=== PATIENT | female | born 1990 | race Caucasian/White ===

== ENCOUNTER → 2017-10-17 15:45 | Outpatient (CLI) | payer SELFPAY ==
--- NOTE | 2017-10-15 | FLU_PTH ---
PATIENT: AIRAM FERNANDEZ [facility] U#:[id number] AGE/SX: 35/F ROOM: RE10/17/[address]: Dr. Mreary Olson MD : 1990 BED: DIS: SPEC #: [id number] RECD: 10/17/17 15:38 STATUS: SLADE [place] #: [id number] JOSE DE JESUS: 10/15/17 00:[address]: Merary Olson DEPT: CYTOLOGY RECD BY: Luis Carlos Beltran Tissues: A - Thyroid gland, NOS B - Thyroid gland, NOS Procedures: Pap Stain (control) Special Stain Group II Surgery Specimen Level IV Cell Block Cytospin Fluid HEADER OPERATION: Ultrasound-guided fine needle aspiration of left thyroid PRE-OP DIAGNOSIS: Left thyroid nodules TISSUE SUBMITTED: A - FNA left thyroid fluid for cytology, B - FNA left thyroid 8 slides DIAGNOSIS CYTOLOGY A. Left thyroid nodule fluid, FNA (cytospin and cell block): Benign follicular cells and macrophages noted. B. Left thyroid nodule, FNA (smears): Consistent with benign follicular nodule with focal cystic changes. See cytology study and comment. SJ:rg 10/19/17 COMMENT B. Correlation with clinical, radiologic findings and appropriate follow up are necessary. CYTOLOGY STUDY Slides are reviewed. B. The specimen is adequate for evaluation. The specimen consists of benign follicular cells, macrophages and diluted colloid. CYTOLOGY GROSS A - Received is 30 ml of red cloudy fluid labeled with the patient's name and and designated per the requisition as left thyroid. Submitted for cytology preparation including cell block. B - Received are eight smears labeled with the patient's name and designated per the requisition as left thyroid. Submitted for staining. / 10/18/17 TC:5 CPT: 90188, 40866, 13705
== END ==
PROVIDERS: Visit Provider Surgery
DX: E04.1 Nontoxic single thyroid nodule (principal)
CPT/HCPCS: 88108; 88305; 88313

== ENCOUNTER → 2020-04-30 16:20 | Outpatient (CLI) | payer SELFPAY ==
[2015-10-21 18:11] VITALS: BMI 44.9
--- NOTE | 2020-04-30 | FLU_PTH ---
PATIENT: AIRAM FERNANDEZ LOC: [facility] U#:[id number] AGE/SX: 35/F ROOM: RE04/30/[address]: Dr. Merary Olson MD : 1990 BED: DIS: SPEC #: [id number] RECD: 04/30/20 17:19 STATUS: SLADE REQ #: [id number] JOSE DE JESUS: 04/30/20 00:[address]: Merary Olson DEPT: CYTOLOGY RECD BY: Luis Carlos Beltran ENTERED: 05/03/20 09:48 SP TYPE: Fluid OTHR DR: Dr. Jorge L Yuen, DO Tissues: A - Thyroid gland, NOS B - Thyroid gland, NOS Procedures: Special Stain Group II Surgery Specimen Level IV Cytospin Fluid HEADER OPERATION: Ultrasound-guided fine needle aspiration left thyroid PRE-OP DIAGNOSIS: Thyroid nodules TISSUE SUBMITTED: A - FNA left thyroid fluid for cytology, B - FNA left thyroid 8 slides DIAGNOSIS CYTOLOGY A. Fine needle aspiration, left thyroid nodule (cytospin and cell block): Adequate for evaluation. Benign follicular nodule with cystic change. B. Fine needle aspiration, left thyroid nodule (smears): Adequate for evaluation. Consistent with benign follicular nodule with cystic change. AM:nilda 05/04/20 AM:nilda 05/11/20 CYTOLOGY STUDY Slides are reviewed. CYTOLOGY GROSS A - Received is 30 ml of brown cloudy fluid labeled with the patient's name and and designated per the requisition as left thyroid. Submitted for cytology preparation including cell block. B - Received are eight smears labeled with the patient's name and designated per the requisition as left thyroid. Submitted for staining. / nilda 05/03/20 TC:5 CPT: 51400, 77540, 40199 ADDENDUM ADDENDUM ADDENDUM ADDENDUM ADDENDUM ADDENDUM ADDENDUM ADDENDUM ADDENDUM ADDENDUM 11/19/2020 10:24 ADDENDUM 11/19/2020 10:24 ADDENDUM 11/19/2020 10:24 ADDENDUM 11/19/2020 10:24 ADDENDUM 11/19/2020 10:24 This addendum is added to incorporate an outside pathology consultation report. The case was examined at [facility] (#[id number]) and the following diagnosis was rendered. Left thyroid nodule, fine needle aspiration: Atypia of undetermined significance. Please see complete above mentioned consultation report in EMR
--- NOTE | 2020-04-30 | FLU_PTH ---
PATIENT: AIRAM FERNANDEZ LOC: [facility] U#:[id number] AGE/SX: 35/F ROOM: RE04/30/[address]: Dr. Merary Olson MD : 1990 BED: DIS: SPEC #: [id number] RECD: 04/30/20 17:19 STATUS: SLADE REQ #: [id number] JOSE DE JESUS: 04/30/20 00:[address]: Merary Olson DEPT: CYTOLOGY RECD BY: Luis Carlos Beltran ENTERED: 05/03/20 09:48 SP TYPE: Fluid OTHR DR: Dr. Jorge L Yuen, DO Tissues: A - Thyroid gland, NOS B - Thyroid gland, NOS Procedures: Special Stain Group II Surgery Specimen Level IV Cytospin Fluid HEADER OPERATION: Ultrasound-guided fine needle aspiration left thyroid PRE-OP DIAGNOSIS: Thyroid nodules TISSUE SUBMITTED: A - FNA left thyroid fluid for cytology, B - FNA left thyroid 8 slides DIAGNOSIS CYTOLOGY A. Fine needle aspiration, left thyroid nodule (cytospin and cell block): Adequate for evaluation. Benign follicular nodule with cystic change. B. Fine needle aspiration, left thyroid nodule (smears): Adequate for evaluation. Consistent with follicular nodule with cystic change. AM:nilda 05/04/20 CYTOLOGY STUDY Slides are reviewed. CYTOLOGY GROSS A - Received is 30 ml of brown cloudy fluid labeled with the patient's name and and designated per the requisition as left thyroid. Submitted for cytology preparation including cell block. B - Received are eight smears labeled with the patient's name and designated per the requisition as left thyroid. Submitted for staining. / nilda 05/03/20 TC:5 CPT: 07021, 78803, 64757
== END ==
PROVIDERS: PCP Student in an Organized Health Care Education/Training Program; Referring Provider Surgery; Visit Provider Surgery
DX: E04.2 Nontoxic multinodular goiter (principal)
CPT/HCPCS: 88108; 88305; 88313

== ENCOUNTER → 2021-10-07 | Outpatient (CLI) | payer BC, SELFPAY | END | disposition home or self-care (01) | PROVIDERS: PCP Student in an Organized Health Care Education/Training Program; Visit Provider Obstetrics & Gynecology | DX: N89.8 Other specified noninflammatory disorders of vagina (principal) ==

== ENCOUNTER 2022-07-04 20:54 | Emergency (ER) | payer BC, SELFPAY ==
[2022-07-04 20:55] VITALS: BP 146/92; PULSE 102; RESP 18; TEMP 35.5; O2SAT 96; BMI 49.0
--- NOTE | 2022-07-04 21:10 | US_ITS ---
STUDY: VENOUS DOPPLER ULTRASOUND - LEFT LOWER EXTREMITY REASON FOR EXAM: Female, 32 years old. LT NUMBNESS AND SWELLING TECHNIQUE: Ultrasound evaluation of the deep vein system to include cheung-scale imaging and compression was performed. Cheung-scale imaging and Doppler sonographic evaluation, including duplex spectral analysis and qualitative color flow sonography, was performed. COMPARISON: None. FINDINGS: Common Femoral Vein: Normal compression, spontaneity and augmentation. Normal color Doppler. Common Femoral Vein/Greater Saphenous Junction: Normal compression, spontaneity and augmentation. Normal color Doppler. Deep Femoral Vein: Normal compression, spontaneity and augmentation. Normal color Doppler. Femoral Proximal: Normal compression, spontaneity and augmentation. Normal color Doppler. Femoral Middle: Normal compression, spontaneity and augmentation. Normal color Doppler. Femoral Distal: Normal compression, spontaneity and augmentation. Normal color Doppler. Popliteal Vein: Normal compression, spontaneity and augmentation. Normal color Doppler. Posterior Tibial Vein: Normal compression, spontaneity and augmentation. Normal color Doppler. Peroneal Vein: Normal compression, spontaneity and augmentation. Normal color Doppler. There is no demonstrated deep venous thrombosis. US/Venous Duplex Imag/Limited/Uni IMPRESSION: Normal venous Doppler ultrasound of the lower extremity. Electronically Signed: Abdoul Carroll MD at 22:27 EST ,
--- NOTE | 2022-07-04 21:31 | EDS_ITS ---
HPI History of Present Illness Chief Complaint: Lower Extremity Injury Detail of Chief Complaint: Atraumatic left lower extremity pain and swelling Informant: patient Onset/Context/Timing Onset: Yesterday Context: Sudden Onset Timing: Continuous Quality: Pain and swelling left leg with paresthesia Location: Left leg Current Severity: Mild Maximum Severity: Moderate Worsened by: Movement Relieved by: Nothing Associated Symptoms Associated Symptoms: None Narrative Narrative: Patient is a 32-year-old woman with history of polycystic ovarian disease who is status post breast reduction surgery May 2022. Patient had a follow-up office visit on June 28, 2022. Office visit assessment and plan was for situational insomnia, disc metabolic syndrome, insulin resistance, status post breast reduction surgery, upper back pain and class III obesity. There was no evidence infection of the breast. There is also discussion regarding insulin re sistance. Patient presents today because of pain and swelling of her left leg. She also comings of tingling from the knee down. There is no history of trauma. She denies fever, chills night sweats. She denies chest pain or shortness of breath. She denies pleuritic chest pain. She denies nausea, vomiting diarrhea. She denies symptoms of claudication. She denies elevated blood sugar. Prior similar symptoms: No Recent Illness/Hospitalization: [facility] Medical History Allergies Back problem Cancer Gastrointestinal problem GERD (gastroesophageal reflux disease) Headache PCOS (polycystic ovarian syndrome) Seizure Vision problem Vitamin deficiency Home Medications cholecalciferol (vitamin D3) 50 mcg (2,000 unit) tablet 2,000 unit PO DAILY 09/14/13 [History Last Taken Unknown] ergocalciferol (vitamin D2) 1,250 mcg (50,000 unit) capsule (Vitamin D2) 50,000 unit PO Q7D 09/14/13 [History Last Taken Unknown] multivitamin with folic acid 400 mcg tablet (Thera) 1 tab PO DAILY 09/14/13 [History Last Taken Unknown] Flexeril 10 mg PO DAILY 02/09/15 [History Last Taken Unknown] diclofenac potassium 50 mg tablet ea PO 04/28/22 [History Last Taken Unknown] estradiol 0.01% (0.1 mg/gram) vaginal cream gm vaginal 04/28/22 [History Last Taken Unknown] ferrous fumarate 325 mg (106 mg iron) tablet 325 mg PO DAILY 04/28/22 [History Last Taken Unknown] fluticasone propionate 50 mcg/actuation nasal spray,suspension 1 spray intranasal DAILY 04/28/22 [History Last Taken Unknown] loratadine 5 mg-pseudoephedrine ER 120 mg tablet,extended release,12hr (Alavert D-12 Allergy-Sinus) 1 tab PO Q12H 04/28/22 [History Last Taken Unknown] multivitamin (Daily Multi-Vitamin tablet) 1 tab PO DAILY 04/28/22 [History Last Taken Unknown] multivitamin with minerals (Hair,Skin and Nails tablet) 1 tab PO DAILY 04/28/22 [History Last Taken Unknown] pregabalin 25 mg capsule ea PO 04/28/22 [History Last Taken Unknown] thyroid gummies PO 04/28/22 [History Last Taken Unknown] topiramate 100 mg tablet 100 mg PO 04/28/22 [History Last Taken Unknown] Allergy/AdvReac Type Severity Reaction Status Date / Time amoxicillin Allergy Intermediate Rash Verified 07/04/22 20:56 Environmental Allergies: Allergy NEEDS Verified 07/04/22 20:56 Uncoded FOLLOW-UP [dust] Family History (Updated 04/28/22 @ 11:04 by Gaviota Dunlap) Other Alcohol abuse Autoimmune disorder Hypertension Surgical History (Updated 07/04/22 @ 21:[address] Jewel Cash MD) Delivery by section H/O bilateral breast reduction surgery H/O total hysterectomy Social History Smoking Status: Former smoker alcohol intake: never substance use type: does not use what type of physical activity do you participate in: walking ROS ROS ED Constitutional Constitutional ED: Denies chills, fever(s), subjective, sweats or weight loss Eyes Eyes: Denies blurry vision, change in vision or diplopia ENT ENT ED: Denies ear pain, rhinorrhea or sore throat Cardiovascular Cardiovascular: Denies chest pain, orthopnea, palpitations, paroxysmal nocturnal dyspnea or racing heartbeat Respiratory/Chest Respiratory/Chest: Denies cough, dyspnea, dyspnea on exertion, orthopnea, paroxysmal nocturnal dyspnea or sputum Gastrointestinal Gastrointestinal: Denies abdominal pain, nausea or vomiting Musculoskeletal Musculoskeletal: Denies arthralgias, myalgias or neck pain Integumentary Denies Abrasions or rash Neurologic Neurologic: Denies paresthesias or weakness Hematologic/Lymphatic Hematologic/Lymphatic: Reports systems reviewed and no addt'l complaints, except as documented EXAM Physical Exam Const Vital Signs: 07/04/22 20:55 Temperature 96 F L Temperature Source Temporal Pulse Rate 102 H Respiratory Rate 18 Blood Pressure 146/92 H Blood Pressure Mean 110 Pulse Ox 96 Oxygen Delivery Method Room Air Positive well nourished, well developed and obese General Appearance ED: well developed and NAD; Negative for cyanotic, diaphore tic or pallor Nutritional Appearance: obese HEENT Reports moist mucous membranes HEENT Narrative: Head is atraumatic normocephalic. Ears normal. Nares patent. Mucosa moist. Eyes PERRL and EOMs intact bilaterally General Eye ED: Negative for pale conjunctiva or scleral icterus Neck no lymphadenopathy, supple and no JVD Resp normal respiratory effort Cardio regular rate and regular rhythm Back/Spine no CVA tenderness Extremity Negative for normal to inspection Extremity Narrative: The left leg is considerably larger in size. There is tenderness on the distribution deep venous system. There is no leg vein distention. There is no palpable cords. There is no tenderness along the abductor canal. DP and PT pulse are palpable. There were no wounds noted. Neuro oriented x3, CN's II-XII intact bilaterally and no sensory deficits noted Sensorium / Orientation: alert Psych mental status grossly normal Skin no rashes or lesions noted, no wounds and skin turgor normal General Skin Exam: Negative for jaundice or pallor MDM MDM MDM Narrative Medical decision making narrative: Patient is at moderate to high risk for DVT based on Wells score. For this reason venous duplex study was ordered to evaluate for DVT. Prior labs indicate no renal dysfunction. This was reviewed in the event she needed to be placed on anticoagulant. Since patient has no cardiac or respiratory symptoms EKG chest x-ray and laboratory studies were not obtained. Prior office visit for postop care and diabetes were reviewed. The office visit occurred on June 28, 2022. Further detail in the HPI narrative. Patient was informed of results. She was discharged to home. Radiography Diagnostic Testing: Clinical Impression(s) from Imaging Studies Venous Duplex 07/04/22 21:10 IMPRESSION: Normal venous Doppler ultrasound of the lower extremity. Electronically Signed: Abdoul Carroll MD at 22:27 [facility] , Rhythm Strip Rhythm Strip: Sinus Rhythm Rate: 95 Ectopy: None Treatment and Re-Evaluation Narrative: Since there is no history of DVT will discharge to home with pain medicine. Patient states she does not need pain medicine. Should be discharged to home Discharge Plan Triage Chief Complaint: Lower Extremity Injury ED Provider: Jewel Cash Dx/Rx/DC Orders Clinical Impression: Acute pain of left lower extremity, Left leg paresthesias, Pain in left leg Instructions: ED Pain, Acute, Uncertain Cause Prescriptions: No Action pregabalin 25 mg capsule PO Label Comments: TAKE 1 CAPSULE BY MOUTH TWICE DAILY (IN THE MORNING AND AFTERNOON) FOR PAIN topiramate 100 mg tablet 100 mg PO Label Comments: TAKE 1 TABLET BY MOUTH ONCE DAILY AT BEDTIME diclofenac potassium 50 mg tablet PO Label Comments: TAKE 1 TABLET BY MOUTH AT ONSET OF HEADACHE. MAY TAKE THREE TIMES DAILY NEEDED FOR PAIN. TAKE WITH FOOD AND NO MORE THAN 10 DAYS PER MONTH estradiol 0.01 % (0.1 mg/gram) cream vaginal Label Comments: INSERT 0.5 GRAMS VAGINALLY AT BEDTIME FOR 2 WEEKS, THEN 2 TIMES A WEEK FOR MAINTENANCE Alavert D-12 Allergy-Sinus 5-120 mg tablet extended release 12 hr 1 tab PO Q12H fluticasone propionate 50 mcg/actuation spray,suspension 1 spray intranasal DAILY Rx Instructions: administer into each nostril ferrous fumarate 325 mg (106 mg iron) tablet 325 mg PO DAILY multivitamin [Daily Multi-Vitamin] Tablet 1 tab PO DAILY Hair,Skin and Nails Tablet 1 tab PO DAILY thyroid gummies PO ergocalciferol (vitamin D2) [Vitamin D2] 50,000 UNIT capsule 50,000 unit PO Q7D cholecalciferol (vitamin D3) 2,000 UNIT tablet 2,000 unit PO DAILY multivitamin with folic acid [Thera] 1 TABLET tablet 1 tab PO DAILY Flexeril 10 mg PO DAILY Primary Care Provider: Jorge L Yuen Referrals: Jorge L Yuen DO [Primary Care Provider] - 3-5 Days if not improving Disposition Disposition: Home, Self Care
== END 2022-07-04 23:10 | disposition home or self-care (01) ==
PROVIDERS: Emergency Provider Emergency Medicine; PCP Student in an Organized Health Care Education/Training Program; Visit Provider Emergency Medicine
DX: M79.605 Pain in left leg (principal); G40.909 Epilepsy, unspecified, not intractable, without status epilepticus; R20.2 Paresthesia of skin; E66.9 Obesity, unspecified; E88.81 Metabolic syndrome and other insulin resistance; M54.9 Dorsalgia, unspecified; E28.2 Polycystic ovarian syndrome; K21.9 Gastro-esophageal reflux disease without esophagitis; Z79.899 Other long term (current) drug therapy; Z87.891 Personal history of nicotine dependence
CPT/HCPCS: 93971; 99282; A4216

== ENCOUNTER → 2022-09-19 | Outpatient (CLI) | payer BC, SELFPAY ==
[2022-09-25 15:36] LABS: HPV APTIMA, High Risk Negative (Negative)
== END | disposition home or self-care (01) ==
LOC: LABSPEC 10:59
PROVIDERS: PCP Student in an Organized Health Care Education/Training Program; Visit Provider Nurse Practitioner Women's Health
DX: Z08 Encounter for follow-up examination after completed treatment for malignant neoplasm (principal)
CPT/HCPCS: 87624; 88175; G0145

== ENCOUNTER 2022-10-17 09:59 | Outpatient (RCR) | payer BC, SELFPAY | END 2022-11-08 23:59 | LOC: NS 09:59 | PROVIDERS: PCP Student in an Organized Health Care Education/Training Program; Referring Provider Nurse Practitioner Women's Health; Visit Provider Nurse Practitioner Women's Health | DX: Z71.3 Dietary counseling and surveillance (principal); E66.9 Obesity, unspecified; Z68.41 Body mass index [BMI] 40.0-44.9, adult; E28.2 Polycystic ovarian syndrome; E88.81 Metabolic syndrome and other insulin resistance | CPT/HCPCS: 97802 ==

== ENCOUNTER 2023-03-25 16:26 | Emergency (ER) | payer BC, SELFPAY ==
[2023-03-25 16:26] VITALS: BP 132/95; PULSE 98; RESP 17; TEMP 36.6; O2SAT 98; BMI 49.6
--- NOTE | 2023-03-25 16:40 | EX.ED.DYSGE1 ---
HPI <ZHOU Fournier - Last Filed: 03/25/23 17:48> History of Present Illness Chief Complaint: Cold Sx Narrative Narrative: Patient presenting today due to a cough, nasal congestion, intermittent wheezing, and feeling like she is losing her voice. She reports that the cough and nasal congestion have been going on for about 2 weeks. She was seen at the [facility] last weekend and was started on prednisone for 5 days which did seem to help her symptoms slightly. She reports that she feels at times she cannot completely catch her breath due to coughing so much. She denies any chest pain or feeling short of breath. She denies fever and chills. PFSH <ZHOU Fournier - Last Filed: 03/25/23 17:48> [facility] Medical History Allergies Back problem Cancer Fibromyalgia Gastrointestinal problem GERD (gastroesophageal reflux disease) Headache PCOS (polycystic ovarian syndrome) PTSD (post-traumatic stress disorder) Seizure Vision problem Vitamin deficiency Home Medications estradiol 0.01% (0.1 mg/gram) vaginal cream gm vaginal 04/28/22 [History Last Taken Unknown] loratadine 5 mg-pseudoephedrine ER 120 mg tablet,extended release,12hr (Alavert D-12 Allergy-Sinus) 1 tab PO Q12H 04/28/22 [History Last Taken Unknown] multivitamin with minerals (Hair,Skin and Nails tablet) 1 tab PO DAILY 04/28/22 [History Last Taken Unknown] thyroid gummies PO 04/28/22 [History Last Taken Unknown] topiramate 100 mg tablet 100 mg PO 04/28/22 [History Last Taken Unknown] duloxetine 30 mg capsule,delayed release 30 mg PO DAILY #30 caps 01/31/23 [Rx Last Taken Unknown] pregabalin 25 mg capsule 100 mg PO BID PRN pain 01/31/23 [History Last Taken Unknown] trazodone 50 mg tablet 50 mg PO QHS PRN 01/31/23 [History Last Taken Unknown] albuterol sulfate 2.5 mg/0.5 mL solution for nebulization 2.5 mg (0.5 mL) inhalation Q4H PRN shortness of breath or wheezing #30 ea 03/25/23 [Rx Last Taken Unknown] doxycycline hyclate 100 mg tablet 100 mg PO BID #10 tabs 03/25/23 [Rx Last Taken Unknown] prednisone 20 mg tablet 40 mg (2 x 20 mg) PO DAILY 4 days #8 tabs 03/25/23 [Rx Last Taken Unknown] Allergy/AdvReac Type Severity Reaction Status Date / Time amoxicillin Allergy Intermediate Rash Verified 03/25/23 16:26 Environmental Allergies: Allergy NEEDS Verified 03/25/23 16:26 Uncoded FOLLOW-UP [dust] Family History Other Alcohol abuse Autoimmune disorder Hypertension Surgical History Delivery by section H/O bilateral breast reduction surgery H/O total hysterectomy Social History Smoking Status: Never smoker alcohol intake: never substance use type: does not use what type of physical activity do you participate in: walking ROS <ZHOU Fournier - Last Filed: 03/25/23 17:48> ROS ED Constitutional Constitutional ED: Denies chills or fever(s) ENT ENT ED: Reports hoarseness and nasal congestion Cardiovascular Cardiovascular: Denies chest pain Respiratory/Chest Respiratory/Chest: Reports chest congestion, cough and wheezing; Denies dyspnea or hemoptysis Gastrointestinal Gastrointestinal: Denies abdominal pain, nausea or vomiting Musculoskeletal Musculoskeletal: Denies arthralgias or myalgias Integumentary Denies rash Neurologic Neurologic: Denies weakness EXAM <ZHOU Fournier - Last Filed: 03/25/23 17:48> Physical Exam Const Vital Signs: 03/25/23 16:26 03/25/23 16:33 03/25/23 16:56 Temperature 97.8 F Temperature Source Temporal Pulse Rate 98 98 Respiratory Rate 17 16 Respiratory Effort Normal Respiratory Pattern Normal Normal Blood Pressure 132/95 H Blood Pressure Mean 107 Pulse Ox 98 Oxygen Delivery Method Room Air Positive well nourished, well developed and no apparent distress General Appearance ED: well developed HEENT Reports normocephalic and head/scalp atraumatic Mouth ED: Yes moist mucous membranes normal Eyes PERRL and EOMs intact bilaterally Neck full ROM and supple Chest Wall inspection of chest normal Resp normal respiratory effort and clear to auscultation bilaterally Resp Narrative: Coarse breath sounds throughout with minimal expiratory wheezes in bilateral lung [place]. Cardio regular rate and regular rhythm GI soft to palpation, non-tender, non-distended and no masses Back/Spine normal ROM and normal to inspection Extremity normal to inspection and full ROM Neuro oriented x3, CN's II-XII intact bilaterally, moves all extremities, no focal motor deficits and no sensory deficits noted Sensorium / Orientation: awake and alert Psych mental status grossly normal and thought process normal Skin no rashes or lesions noted and no wounds <Dr. Tray Hamm DO - Last Filed: 03/25/23 17:30> Physical Exam Const Vital Signs: 03/25/23 16:26 03/25/23 16:33 03/25/23 16:56 Temperature 97.8 F Temperature Source Temporal Pulse Rate 98 98 Respiratory Rate 17 16 Respiratory Effort Normal Respiratory Pattern Normal Normal Blood Pressure 132/95 H Blood Pressure Mean 107 Pulse Ox 98 Oxygen Delivery Method Room Air MDM <ZHOU Fournier - Last Filed: 03/25/23 17:48> [facility] Narrative Medical decision making narrative: Patient presenting today due to a cough she has had for about 2 weeks. She reports that it is a wet cough but only now and then will she cough up sputum and it is clear. She has had some intermittent wheezing, she does not have a history of asthma. She reports sometimes she will cough so much she feels like she cannot catch her breath but does not feel short of breath. Her O2 saturation here is 98%, she is well-appearing and in no acute distress, she is afebrile. She was on prednisone for 5 days from urgent care after seeing them last Sunday which did seem to help her symptoms somewhat. She does have a little bit of expiratory wheezes in bilateral lung [place], I will give her a DuoNeb and albuterol breathing treatment here. Given that she has been symptomatic for 2 weeks I think it is reasonable to start her on antibiotics, she will be started on doxycycline with first dose here and will be given another burst of prednisone. She is to follow-up with her PCP, chest x-ray did not show any sign of pneumonia. She be discharged home in stable condition and is comfortable with plan. Radiography X-Ray: Read by ED Physician and Read by Radiologist Diagnostic Testing: Clinical Impression(s) from Imaging Studies Chest X-Ray 03/25/23 16:50 IMPRESSION: No radiographic evidence of acute cardiopulmonary disease. Electronically Signed: Bert Bustamante MD at 17:18 EDT , <Dr. Tray Hamm, DO - Last Filed: 03/25/23 17:30> MDM Radiography Diagnostic Testing: Clinical Impression(s) from Imaging Studies Chest X-Ray 03/25/23 16:50 IMPRESSION: No radiographic evidence of acute cardiopulmonary disease. Electronically Signed: Bert Bustamante MD at 17:18 EDT , Treatment and Re-Evaluation Comments:: I have personally performed a face to face assessment of the patient and have reviewed the GEORGE Note. I performed a substantive portion of the visit including all aspects of the following. My salcido findings include: History is 2 weeks of cough with sputum and wheezing. Seen last week in urgent care started on a burst prednisone x5 days and albuterol nebulizer. She states that the prednisone helps but today she began wheezing substantially again. She has a nebulizer at home from her daughter. No fevers. Exam is expiratory wheeze slightly and rhonchi which improved with cough Medical Decison Making my interpretation of the chest x-ray is no acute process. Patient will do every 4 hour nebulizers. Will write another prescription for them. She should continue to carry the albuterol MDI with her when not at home. We can do a tapering dose of prednisone and as it has been 2 weeks we can add in doxycycline. Discharge Plan Triage Chief Complaint: Cold Sx ED Midlevel Provider: Stefania Hoffman ED Provider: Tray Hamm Dx/Rx/DC Orders Clinical Impression: Bronchitis Instructions: ED Bronchitis with Wheezing (Adult) Prescriptions: New albuterol sulfate 2.5 mg/0.5 mL solution for nebulization 2.5 mg inhalation Q4H PRN (Reason: shortness of breath or wheezing) Qty: 30 0RF doxycycline hyclate 100 mg tablet 100 mg PO BID Qty: 10 0RF prednisone 20 mg tablet 40 mg PO DAILY 4 Days Qty: 8 0RF No Action topiramate 100 mg tablet 100 mg PO Patient Comments: TAKE 1 TABLET BY MOUTH ONCE DAILY AT BEDTIME estradiol 0.01 % (0.1 mg/gram) cream vaginal Patient Comments: INSERT 0.5 GRAMS VAGINALLY AT BEDTIME FOR 2 WEEKS, THEN 2 TIMES A WEEK FOR MAINTENANCE Alavert D-12 Allergy-Sinus 5-120 mg tablet extended release 12 hr 1 tab PO Q12H Hair,Skin and Nails Tablet 1 tab PO DAILY thyroid gummies PO pregabalin 25 mg capsule 100 mg PO BID PRN (Reason: pain) Patient Comments: TAKE 1 CAPSULE BY MOUTH TWICE DAILY (IN THE MORNING AND AFTERNOON) FOR PAIN trazodone 50 mg tablet 50 mg PO QHS PRN duloxetine 30 mg capsule,delayed release(DR/EC) 30 mg PO DAILY Qty: 30 2RF Primary Care Provider: Jorge L Yuen Referrals: Jorge L Yuen, [Primary Care Provider] - 3-5 Days if not improving Activity Restrictions/Additional Instructions: Please return for any worsening of your symptoms and follow-up with your PCP. Disposition Disposition: Home, Self Care Discharge Date/Time: 03/25/23 17:35
--- NOTE | 2023-03-25 16:50 | RAD_ITS ---
EXAM: XR CHEST, 2 VIEWS CLINICAL INDICATION: cough TECHNIQUE: Frontal and lateral views of the chest. COMPARISON: No relevant prior studies available. FINDINGS: LUNGS AND PLEURAL SPACES: Unremarkable. No consolidation or edema. No pneumothorax. No effusion. HEART: Unremarkable. Cardiac silhouette not enlarged. MEDIASTINUM: Central airways and mediastinal contour are unremarkable. BONES/JOINTS: Unremarkable. SOFT TISSUES: Unremarkable. RAD/Chest PA and Lateral IMPRESSION: No radiographic evidence of acute cardiopulmonary disease. Electronically Signed: Bert Bustamante MD at 17:18 EDT ,
[2023-03-25] MEDS: Ipratropium/Albuterol Sulfate 3 ML AMPUL.NEB INHALATION (16:54)
[2023-03-25 16:56] VITALS: PULSE 98; RESP 16
[2023-03-25] MEDS: Doxycycline 100 MG CAPSULE PO (17:32)
[2023-03-25] MEDS: predniSONE 20 MG Tablet 40 MG PO (17:32)
== END 2023-03-25 17:35 | disposition home or self-care (01) ==
PROVIDERS: Emergency Provider Emergency Medicine; PCP Student in an Organized Health Care Education/Training Program; Visit Provider Emergency Medicine
DX: J40 Bronchitis, not specified as acute or chronic (principal); R56.9 Unspecified convulsions; M79.7 Fibromyalgia; Z79.899 Other long term (current) drug therapy; Z90.710 Acquired absence of both cervix and uterus
CPT/HCPCS: 71046; 94640; 99283

== ENCOUNTER 2024-02-02 11:06 | Emergency (ER) | payer MEDICAID, SELFPAY ==
[2024-02-02 11:06] VITALS: BP 139/80; PULSE 95; RESP 16; TEMP 36.1; O2SAT 95; BMI 48.9
--- NOTE | 2024-02-02 11:21 | EKG12_ITS ---
Test Reason : CP Blood Pressure : / mmHG Vent. Rate : 088 BPM Atrial Rate : 088 BPM P-R Int : 158 ms QRS Dur : 074 ms QT Int : 366 ms P-R-T Axes : 061 021 057 degrees QTc Int : 442 ms Normal sinus rhythm Normal ECG Confirmed by aMrcial Canales ([id number]), multimedia editor MIRZA VICK ([id number]) on 02/04/2024 10:29:59 AM Referred By: ADDISON Confirmed By:Marcial Canales
--- NOTE | 2024-02-02 11:23 | ED.VIS.CHEST ---
HPI History of Present Illness Chief Complaint: Chest Pain Narrative Narrative: 33-year-old female past medical history of anxiety, fibromyalgia, PTSD presents with chest pains and shortness of breath. She states she is employed as an [employer]. Today she had a headache and felt woozy, so she sat down and they took her blood pressure and it was elevated at 170+ systolic. She does not have a history of hypertension. She had a headache at that time and felt a migraine coming on, and she does have a history of migraines however. After she sat down and they took her blood pressure a few times, remained elevated. While the headache has subsided, she states she now has chest pains and shortness of breath. No recent fevers or chills. Slight nausea but no vomiting. No true exacerbating or alleviating factors. She is concerned because her blood pressure was elevated so high, now she is having the chest pain and shortness of breath. No leg swelling. PFSH [facility] Medical History Situational anxiety Fibromyalgia PTSD (post-traumatic stress disorder) PCOS (polycystic ovarian syndrome) Vitamin deficiency Vision problem Seizure GERD (gastroesophageal reflux disease) Headache Gastrointestinal problem Cancer Back problem Allergies Home Medications ?Medication ?Instructions ?Recorded ?Last Taken ?Type estradiol 0.01% (0.1 mg/gram) gm vaginal 04/28/22 Unknown History vaginal cream loratadine 5 mg-pseudoephedrine ER 1 tab PO Q12H 04/28/22 Unknown History 120 mg tablet,extended release,12hr (Alavert D-12 Allergy-Sinus) multivitamin with minerals 1 tab PO DAILY 04/28/22 Unknown History (Hair,Skin and Nails tablet) thyroid gummies PO 04/28/22 Unknown History topiramate 100 mg tablet 100 mg PO 04/28/22 Unknown History pregabalin 25 mg capsule 100 mg PO BID PRN pain 01/31/23 Unknown History trazodone 50 mg tablet 50 mg PO QHS PRN 01/31/23 Unknown History albuterol sulfate 2.5 mg/0.5 mL 2.5 mg (0.5 mL) inhalation Q4H PRN 03/25/23 Unknown Rx solution for nebulization shortness of breath or wheezing #30 ea doxycycline hyclate 100 mg tablet 100 mg PO BID #10 tabs 03/25/23 Unknown Rx prednisone 20 mg tablet 40 mg (2 x 20 mg) PO DAILY 4 days 03/25/23 Unknown Rx #8 tabs duloxetine 60 mg capsule,delayed 60 mg PO DAILY #30 caps 06/26/23 Unknown Rx release propranolol 10 mg tablet 10 mg PO BID #60 tabs 06/26/23 Unknown Rx Allergy/AdvReac Type Severity Reaction Status Date / Time amoxicillin Allergy Intermediate Rash Verified 02/02/24 11:06 Environmental Allergies: Allergy NEEDS Verified 02/02/24 11:06 Uncoded (dust) FOLLOW-UP Family History Other Alcohol abuse Autoimmune disorder Hypertension Surgical History H/O bilateral breast reduction surgery Delivery by section H/O total hysterectomy Social History Smoking Status: Never smoker alcohol intake: never substance use type: does not use what type of physical activity do you participate in: walking ROS ROS ED ROS Narrative Constitutional: No fever, no chills. HEENT: No sore throat. No neck pain. No loss of vision. No rhinorrhea. Cardiovascular: Positive chest pain. No palpitations. No pedal edema. Respiratory: No cough, positive shortness of breath. Abdominal: No abdominal pain. No nausea. No vomiting. Genitourinary: No dysuria. No hematuria. Musculoskeletal: No myalgias. No arthralgias. Neurologic: Positive headaches-subsided/resolved. No dizziness. No lightheadedness. Skin: No rash. No change in color. Psychiatric: No depression. No anxiety. EXAM Physical Exam Narrative Exam Narrative: Afebrile. Vital signs noted. HEENT: Normocephalic. Atraumatic. PERRL, EOMI. Neck soft and supple. No point tenderness or step off. Cardiovascular: Regular rate and rhythm. No murmurs, rubs, or gallops appreciated. Respiratory: No tachypnea. Lungs clear to auscultation bilaterally. Gastrointestinal: Abdomen soft, nontender, with normoactive bowel sounds. No rebound or guarding. Neurological: Awake. Alert. Nonfocal, nonlateralizing. Skin: No rash. Normal color. No pallor. Musculoskeletal: No pedal edema. Full range of motion extremities. Const Vital Signs: 02/02/24 11:06 02/02/24 11:21 02/02/24 11:21 Temperature 96.9 F L Temperature Source Temporal Pulse Rate 95 Respiratory Rate 16 Respiratory Effort Normal Non-Labored Blood Pressure 139/80 H Blood Pressure Mean 99 Pulse Ox 95 Oxygen Delivery Method Room Air Room Air 02/02/24 13:08 Temperature Temperature Source Pulse Rate 80 Respiratory Rate 18 Respiratory Effort Blood Pressure 131/68 H Blood Pressure Mean 89 Pulse Ox 96 Oxygen Delivery Method Room Air Heart Score History: Slightly/Non-Suspicious ECG: Normal Age: </= 45 years Risk Factors: No Risk Factors Troponin: </= Normal Limit Score: 0 MDM MDM MDM Narrative Medical decision making narrative: Differential diagnosis includes but not limited to ACS versus hypertensive urgency versus migraine headache versus pulmonary embolism. I have lower suspicion for pulmonary embolism and she is not tachycardic, and her pulse ox is 95% on room air. However D-dimer will be obtained. EKG was obtained and interpreted by myself independently as normal sinus rhythm at 88 bpm without ectopy or acute ST changes. No STEMI. I do feel that serial enzymes are indicated. Initially her blood pressure was 139/80 but is fluctuating. In review of her prior records she has situational anxiety as well listed in her problem list. We think that sometimes this may contribute to her elevated blood pressure as well. She states she has a follow-up appointment with her primary care provider next week. I reviewed her laboratory work and she has a normal white count of 10.6 with hemoglobin 12.8, hematocrit 39.8, platelet count normal at 377, D-dimer negative at 0.27, sodium normal at 137 with potassium 3.8. BUN normal at 12 and creatinine 0.78. Glucose is elevated at 113 but she has normal anion gap. Initial high-sensitivity troponin is less than 3. Chest x-ray 1 view interpreted by myself independently shows no evidence of an acute process, no pneumonia, no pneumothorax. I reviewed the radiology report which confirms my independent interpretation. Repeat examination shows her resting comfortably, her mother is now present. They are informed of her initial results, and her delta troponin is currently pending. Her blood pressure has essentially normalized and is currently 131/68. She was told that she needs to keep a log of her blood pressure and follow-up with her primary care provider. I do not feel that starting her on an acid candidate for intensive is indicated for an elevated reading as an outpatient. Second troponin is also less than 3 for a negative delta troponin. I feel she has been ruled out with cardiac biomarkers. I feel she be discharged to follow-up. Return instructions were reviewed. Disposition is discharged home in stable condition. History & Record Review Discussion w/independent historian: Patient Lab Data Attestation: I reviewed the patient's lab results. Labs: Laboratory Results - last 24 hr 02/02/24 02/02/24 11:24 13:30 WBC 10.6 RBC 4.97 Hgb 12.8 Hct 39.8 MCV 80.1 L MCH 25.8 L MCHC 32.2 RDW Std Deviation 38.7 RDW Coeff of Manuel 13.4 Plt Count 377 MPV 9.1 Immature Gran % (Auto) 0.400 Neut % (Auto) 63.5 Lymph % (Auto) 29.5 Lamb % (Auto) 3.9 Eos % (Auto) 1.6 Baso % (Auto) 1.1 H Absolute Neuts (auto) 6.7 Absolute Lymphs (auto) 3.13 Nucleated RBC % 0 D-Dimer Quant (PE/DVT) 0.27 Sodium 137 Potassium 3.8 Chloride 107 Carbon Dioxide 24.0 Anion Gap 6 BUN 12 Creatinine 0.78 Estim Creat Clear Calc 129.55 Est GFR (MDRD) Af Amer 108 Est GFR (MDRD) Non-Af 89 BUN/Creatinine Ratio 15.5 Glucose 113 H Calcium 9.0 Troponin I High Sens < 3 L < 3 L Radiography Diagnostic Testing: Clinical Impression(s) from Imaging Studies Chest X-Ray 02/02/24 11:40 IMPRESSION: No radiographic evidence of acute cardiopulmonary disease and no significant change. Electronically Signed: J Luis Carter MD at 11:50 EDT , Discharge Plan Triage Chief Complaint: Chest Pain ED Provider: J Luis Keith Dx/Rx/DC Orders Clinical Impression: Chest pain, Shortness of breath, Elevated blood pressure reading Instructions: ED Chest Pain, Uncertain Cause, ED Dyspnea, ED Hypertension, To Be Confirmed Prescriptions: No Action topiramate 100 mg tablet 100 mg PO Patient Comments: TAKE 1 TABLET BY MOUTH ONCE DAILY AT BEDTIME estradiol 0.01 % (0.1 mg/gram) cream vaginal Patient Comments: INSERT 0.5 GRAMS VAGINALLY AT BEDTIME FOR 2 WEEKS, THEN 2 TIMES A WEEK FOR MAINTENANCE Alavert D-12 Allergy-Sinus 5-120 mg tablet extended release 12 hr 1 tab PO Q12H Hair,Skin and Nails Tablet 1 tab PO DAILY thyroid gummies PO pregabalin 25 mg capsule 100 mg PO BID PRN (Reason: pain) Patient Comments: TAKE 1 CAPSULE BY MOUTH TWICE DAILY (IN THE MORNING AND AFTERNOON) FOR PAIN trazodone 50 mg tablet 50 mg PO QHS PRN propranolol 10 mg tablet 10 mg PO BID Qty: 60 1RF duloxetine 60 mg capsule,delayed release(DR/EC) 60 mg PO DAILY Qty: 30 2RF albuterol sulfate 2.5 mg/0.5 mL solution for nebulization 2.5 mg inhalation Q4H PRN (Reason: shortness of breath or wheezing) Qty: 30 0RF doxycycline hyclate 100 mg tablet 100 mg PO BID Qty: 10 0RF prednisone 20 mg tablet 40 mg PO DAILY 4 Days Qty: 8 0RF Primary Care Provider: Jorge L Yuen Referrals: Jorge L Yuen, [Primary Care Provider] - 1 Week if not improving Activity Restrictions/Additional Instructions: Keep a log of your blood pressures for your primary care provider. Return with increased chest pain, shortness of breath, new or worsening symptoms. Print Language: Georgian Disposition Disposition: Home, Self Care
[2024-02-02] MEDS: Aspirin 81 MG TAB.CHEW 324 MG PO (11:39)
--- NOTE | 2024-02-02 11:40 | RAD_ITS ---
EXAM: XR CHEST, 1 VIEW CLINICAL INDICATION: chest pain TECHNIQUE: Frontal view of the chest. COMPARISON: 03/25/2023. FINDINGS: LUNGS AND PLEURAL SPACES: Unremarkable. No consolidation or edema. No pneumothorax. No effusion. HEART: Unremarkable. Cardiac silhouette not enlarged. MEDIASTINUM: Central airways and mediastinal contour are unremarkable. BONES/JOINTS: Unremarkable. No acute fracture. SOFT TISSUES: Unremarkable. RAD/Chest 1 View (Portable) IMPRESSION: No radiographic evidence of acute cardiopulmonary disease and no significant change. Electronically Signed: J Luis Carter MD at 11:50 EDT ,
[2024-02-02 11:42] LABS: Absolute Lymphocyte Count 3.13 X10^3/uL (0.83-4.51); Absolute Neutrophil Count 6.7 X10^3/uL (2.0-7.7); Basophil# 0.12 X10^3/uL; Basophil% 1.1 % (0-1); Eosinophil# 0.17 X10^3/uL; Eosinophils% 1.6 % (0-5); Hematocrit 39.8 % (37-47); Hemoglobin 12.8 g/dL (12.0-15.0); Lymphocyte # 3.13 X10^3/ul (0.83-4.51); Lymphocyte % 29.5 % (19-41); Mean Corp Hgb Conc 32.2 g/dL (32-36); Mean Corpuscular Hgb 25.8 pg (27.0-32.0); Mean Corpuscular Volume 80.1 fL (81-99); Mean Platelet Vol. 9.1 fl (6.2-12.0); Monocyte# 0.41 X10^3/uL; Monocyte% 3.9 % (0-10); NRBC Flagged by Analyzer 0 % (0-5); Neutrophil # 6.73 X10^3/uL (2.7-7.7); Neutrophil % 63.5 % (47-70); Platelet Count 377 K/mm3 (150-450); RBC Distribution Width CV 13.4 % (11.6-14.6); RBC Distribution Width SD 38.7 fl (35.1-43.9); Red Blood Count 4.97 M/mm3 (4.2-5.4); White Blood Count 10.6 K/mm3 (4.4-11.0)
[2024-02-02 11:55] LABS: D-Dimer Quantitative (DVT/PE) 0.27 FEU/ug/m (0.27-0.49)
[2024-02-02 12:09] LABS: Anion Gap 6 (5-15); BUN 12 mg/dL (7-18); BUN/Creat Ratio 15.5 RATIO (10-20); Chloride 107 mmol/L (98-107); Creatinine, Serum 0.78 mg/dL (0.55-1.02); EST Glomerular Filtration Rate 89 mL/min (>60); Est Glom Filt Rate - Afr Amer 108 mL/min (>60); Estimated Creatinine Clearance 129.55 ml/min; Glucose 113 mg/dL (74-106); Potassium 3.8 mmol/L (3.5-5.1); Sodium Level 137 mmol/L (136-145); Troponin-I HS (w/2H Reflex) < 3 pg/mL (3.0-54.0)
[2024-02-02 13:08] VITALS: BP 131/68; PULSE 80; RESP 18; O2SAT 96
[2024-02-02 13:39] LABS: Reflex Troponin-HS? (from REC) Y
[2024-02-02 15:03] LABS: Troponin-I HS < 3 pg/mL (3.0-54.0)
[2024-02-02 15:23] VITALS: BP 135/76; PULSE 79; RESP 18; TEMP 36.8; O2SAT 100
== END 2024-02-02 15:25 | disposition home or self-care (01) ==
PROVIDERS: Emergency Provider Emergency Medicine; PCP Student in an Organized Health Care Education/Training Program; Visit Provider Emergency Medicine
DX: R07.9 Chest pain, unspecified (principal); G40.909 Epilepsy, unspecified, not intractable, without status epilepticus; R03.0 Elevated blood-pressure reading, without diagnosis of hypertension; R06.02 Shortness of breath; M79.7 Fibromyalgia; F43.10 Post-traumatic stress disorder, unspecified; F41.8 Other specified anxiety disorders; E28.2 Polycystic ovarian syndrome; Z79.899 Other long term (current) drug therapy; Z79.51 Long term (current) use of inhaled steroids; Z79.52 Long term (current) use of systemic steroids
CPT/HCPCS: 36415; 71045; 80048; 84484; 85025; 85379; 93005; 99284; A4216